=== PATIENT | male | born 1955 | race Caucasian/White ===

== ENCOUNTER 2021-01-24 09:25 | Inpatient (IN) | payer BC ==
--- NOTE | 2021-01-24 11:11 | RAD REPORT ---
EXAM DESCRIPTION: CTAbdomen Pelvis W Contrast - 01/24/2021 11:01 am CLINICAL HISTORY: Abdominal pain. ABD PAIN COMPARISON: No comparisons TECHNIQUE: Biphasic CT imaging of the abdomen and pelvis was performed with 100 ml non-ionic IV cont rast. All CT scans are performed using dose optimization technique as appropriate and may include automated exposure control or mA/KV adjustment according to patient size. FINDINGS: The lung bases are clear.Mitral annuloplasty. The liver, spleen, pancreas, adrenal glands and kidneys are within normal limits. No bowel obstruction, free air, free fluid or abscess. Periappendiceal inflammatory changes with mac endiceal dilatation. An appendicolith is present. There is some thinning of the wall of the appendix without evidence of a gross perforation. No abscess. No evidence of significant lymphadenopathy. Sma ll fat containing inguinal hernias. No suspicious bony findings. IMPRESSION: Acute appendicitis without definite evidence of perforation. No abscess. The wall of the appendix is thin in parts and an impending perforation is difficult to exclude.
[2021-01-24 11:31] LABS: Basophils % 0.6 % (0-1.3); Hematocrit 42.1 % (39.6-49.0); Lymphocytes % 6.8 % (15.3-44.8); MPV 8.1 fL (7.6-11.3); RBC Red Blood Cell Count 4.76 M/uL (4.33-5.43)
--- NOTE | 2021-01-24 11:53 | EDPHYS ---
Physician Documentation [facility] Name: Wes Tran Jr Age: 65 yrs Sex: Male : 1955 Arrival Date: 01/24/2021 Time: 09:29 Bed 6 Private MD: ED Physician Musa Lincoln HPI: 01/24 11:39 This 65 yrs old Male presents to ER via Ambulatory with complaints of jr8 Abdominal Pain, Flank Pain. 11:39 The patient presents with abdominal pain right lower quadrant. Onset: The jr8 symptoms/episode began/occurred acutely, this morning. The symptoms do not radiate. Associated signs and symptoms: none. The symptoms are described as stabbing. Modifying factors: The symptoms are alleviated by nothing, the symptoms are aggravated by nothing. Severity of pain: At its worst the pain was moderate in the emergency department the pain is unchanged. The patient has not experienced similar symptoms in the past. The patient has not recently seen a physician. Historical: - Allergies: 10:03 No Known Allergies; tw2 - Home Meds: 10:03 metoprolol tartrate 25 mg Oral tab 1 tab 2 times per day [Active]; losartan 25 mg oral tw2 tab 1 tab once daily [Active]; ezetimibe 10 mg oral tab 1 tab once daily [Active]; aspirin 325 mg Oral tab 1 tab once daily [Active]; Fish Oil 300 mg oral cap [Active]; Multiple Vitamins oral tab [Active]; - PMHx: 10:03 Hypertensive disorder; high cholesterol; tw2 - PSHx: 10:03 mitral valve prolapse, 2012; angioplasty, mitral valve, 2012; tw2 - Immunization history:: Client reports having NOT received the Covid vaccine. Last tetanus immunization: up to date. - Social history:: Smoking status: Patient/guardian denies using tobacco, the patient reports quitting approximately 40 years ago. ROS: 11:39 Eyes: Negative for injury, pain, redness, and discharge, ENT: Negative for injury, jr8 pain, and discharge, Neck: Negative for injury, pain, and swelling, Cardiovascular: Negative for chest pain, palpitations, and edema, Respiratory: Negative for shortness of breath, cough, wheezing, and pleuritic chest pain, Back: Negative for injury and pain, MS/Extremity: Negative for injury and deformity, Skin: Negative for injury, rash, and discoloration, Neuro: Negative for headache, weakness, numbness, tingling, and seizure. 11:39 Abdomen/GI: Positive for abdominal pain, Negative for nausea, vomiting, and diarrhea, abdominal cramps, abdominal distension. Exam: 11:39 Constitutional: This is a well developed, well nourished patient who is awake, alert, jr8 and in no acute distress. Cardiovascular: Regular rate and rhythm with a normal S1 and S2. No gallops, murmurs, or rubs. Normal PMI, no JVD. No pulse deficits. Respiratory: Lungs have equal breath sounds bilaterally, clear to auscultation and percussion. No rales, rhonchi or wheezes noted. No increased work of breathing, no retractions or nasal flaring. Back: No spinal tenderness. No costovertebral tenderness. Full range of motion. Skin: Warm, dry with normal turgor. Normal color with no rashes, no lesions, and no evidence of cellulitis. MS/ Extremity: Pulses equal, no cyanosis. Neurovascular intact. Full, normal range of motion. Neuro: Awake and alert, GCS 15, oriented to person, place, time, and situation. Cranial nerves II-XII grossly intact. Motor strength 5/5 in all extremities. Sensory grossly intact. 11:39 Abdomen/GI: Inspection: obese Bowel sounds: active, all quadrants, Palpation: soft, in all quadrants, moderate abdominal tenderness, in the right lower quadrant, mass, is not appreciated, rebound tenderness, is not appreciated, voluntary guarding, is not appreciated, involuntary guarding, is not appreciated, no appreciated organomegaly, Indicators: McBurney's point is tender, Lyn's sign is negative, Rovsing's sign is negative, Liver: tenderness, is not appreciated. Vital Signs: 10:00 BP 114 / 70; Pulse 70; Resp 17; Temp 99.2(O); Pulse Ox 97% on R/A; Pain 8/10; tw2 10:36 BP 116 / 80; Pulse 67; Resp 17; Pulse Ox 99% on R/A; tw2 11:39 BP 117 / 101; Pulse 74; Resp 17; Pulse Ox 100% on R/A; tw2 MDM: 09:45 Patient medically screened. [facility] 11:49 Data reviewed: vital signs, nurses notes, lab test result(s), radiologic studies, CT jr8 scan. Data interpreted: Pulse oximetry: on room air is 100 %. Interpretation: normal. Counseling: I had a detailed discussion with the patient and/or guardian regarding: the historical points, exam findings, and any diagnostic results supporting the discharge/admit diagnosis, lab results, radiology results, the need for further work-up and treatment in the hospital. ED course: Dr. Oseguera notified and will take patient to surgery. Clarifying with Cardiology whether or not patient needs extended Abx due to previous Mitral valve angioplasty. 01/24 10:19 Order name: Basic Metabolic Panel [facility] 01/24 10:19 Order name: CBC with Diff; Complete Time: 11:40 [facility] 01/24 10:19 Order name: Hepatic Function [facility] 01/24 10:19 Order name: Lipase [facility] 01/24 10:20 Order name: CT Abd/Pelvis - IV Contrast Only; Complete Time: 11:26 [facility] 01/24 10:19 Order name: IV Saline Lock; Complete Time: 10:49 [facility] 01/24 10:19 Order name: Labs collected and sent; Complete Time: 10:49 [facility] 01/24 11:08 Order name: Labs - recollect needed; Complete Time: 11:39 em1 Administered Medications: No medications were administered Disposition: 13:11 Co-signature as Attending Physician, Musa Lincoln MD I agree with the assessment and kdr plan of care. Disposition Summary: 01/24/21 11:52 Hospitalization Ordered Hospitalization Status: Observation [facility] Provider: Talib White [facility] Condition: Stable [facility] Problem: new [facility] Symptoms: are unchanged [facility] Bed/Room Type: Standard [facility] Room Assignment: [facility] Diagnosis - Acute appendicitis with localized peritonitis [facility] Discharge Instructions: - Discharge Summary Sheet ss Forms: - SBAR form ss - Medication Reconciliation Form [facility] Signatures: Dispatcher [employer] EDMusa Vail MD MD kdr Martinez, Eric em1 Blade Sampson PA PA 8 Ana Marinelli RN RN tw2
--- NOTE | 2021-01-24 11:53 | ER ---
Nurse's Notes [facility] Name: Wes Tran Jr Age: 65 yrs Sex: Male : 1955 Arrival Date: 01/24/2021 Time: 09:29 Bed 6 Private MD: Diagnosis: Acute appendicitis with localized peritonitis Presentation: 01/24 10:00 Chief complaint: Patient states: i was woke up out of my sleep around 0130 with tw2 abdominal pain in the RIGHT lower side, no NVD, no blood in urine. Coronavirus screen: At this time, the client does not indicate any symptoms associated with coronavirus-19. Ebola Screen: Patient denies travel to an Ebola-affected area in the 21 days before illness onset. Initial Sepsis Screen: Does the patient meet any 2 criteria? No. Patient's initial sepsis screen is negative. Does the patient have a suspected source of infection? No. Patient's initial sepsis screen is negative. Risk Assessment: Do you want to hurt yourself or someone else? Patient reports no desire to harm self or others. Onset of symptoms was January 24, 2021. 10:00 Method Of Arrival: Ambulatory tw2 10:00 Acuity: MAI 3 tw2 Triage Assessment: 10:03 General: Appears in no apparent distress. well groomed, Behavior is calm, cooperative, tw2 appropriate for age. Pain: Complains of pain in right lower quadrant. EENT: No signs and/or symptoms were reported regarding the EENT system. Neuro: Level of Consciousness is awake, alert, obeys commands, Oriented to person, place, time, situation. Cardiovascular: Patient's skin is warm and dry. Respiratory: Airway is patent Respiratory effort is even, unlabored, Respiratory pattern is regular, symmetrical. GI: Abdomen is round non-distended, Reports Patient currently denies diarrhea, nausea, vomiting. : No signs and/or symptoms were reported regarding the genitourinary system. Derm: No signs and/or symptoms reported regarding the dermatologic system. Musculoskeletal: Range of motion: intact in all extremities. Historical: - Allergies: 10:03 No Known Allergies; tw2 - Home Meds: 10:03 metoprolol tartrate 25 mg Oral tab 1 tab 2 times per day [Active]; losartan 25 mg oral tw2 tab 1 tab once daily [Active]; ezetimibe 10 mg oral tab 1 tab once daily [Active]; aspirin 325 mg Oral tab 1 tab once daily [Active]; Fish Oil 300 mg oral cap [Active]; Multiple Vitamins oral tab [Active]; - PMHx: 10:03 Hypertensive disorder; high cholesterol; tw2 - PSHx: 10:03 mitral valve prolapse, 2012; angioplasty, mitral valve, 2012; tw2 - Immunization history:: Client reports having NOT received the Covid vaccine. Last tetanus immunization: up to date. - Social history:: Smoking status: Patient/guardian denies using tobacco, the patient reports quitting approximately 40 years ago. Screenin:09 Abuse screen: Denies threats or abuse. Nutritional screening: No deficits noted. tw2 Tuberculosis screening: No symptoms or risk factors identified. Fall Risk None identified. Assessment: 10:06 GI: Bowel sounds present X 4 quads. Abdomen is tender to palpation X 4 quads. tw2 10:17 Reassessment: see triage assessment. tw2 10:36 Reassessment: Patient appears in no apparent distress at this time. No changes from tw2 previously documented assessment. Patient and/or family updated on plan of care and expected duration. Pain level reassessed. Patient is alert, oriented x 3, equal unlabored respirations, skin warm/dry/pink. 11:36 Reassessment: Patient appears in no apparent distress at this time. No changes from tw2 previously documented assessment. Patient and/or family updated on plan of care and expected duration. Pain level reassessed. Patient is alert, oriented x 3, equal unlabored respirations, skin warm/dry/pink. 12:08 Reassessment: Patient appears in no apparent distress at this time. No changes from tw2 previously documented assessment. Patient and/or family updated on plan of care and expected duration. Pain level reassessed. Patient is alert, oriented x 3, equal unlabored respirations, skin warm/dry/pink. Vital Signs: 10:00 BP 114 / 70; Pulse 70; Resp 17; Temp 99.2(O); Pulse Ox 97% on R/A; Pain 8/10; tw2 10:36 BP 116 / 80; Pulse 67; Resp 17; Pulse Ox 99% on R/A; tw2 11:39 BP 117 / 101; Pulse 74; Resp 17; Pulse Ox 100% on R/A; tw2 ED Course: 09:29 Patient arrived in ED. bp1 09:43 Ana Marinelli, RN is Primary Nurse. tw2 09:45 Blade Sampson PA is PHCP. jr8 09:45 Musa Lincoln MD is Attending Physician. jr8 09:45 Bed in low position. Call light in reach. Pulse ox on. NIBP on. tw2 10:03 Triage completed. tw2 10:09 Arm band placed on. tw2 10:49 Inserted saline lock: 20 gauge in left antecubital area, using aseptic technique. tw2 11:01 CT Abd/Pelvis - IV Contrast Only In Process Unspecified. EDMS 11:52 Talib White MD is Hospitalizing Provider. jr8 12:07 No provider procedures requiring assistance completed. Patient admitted, IV remains in tw2 place. Administered Medications: No medications were administered Outcome: 11:52 Decision to Hospitalize by Provider. jr8 12:07 Admitted to OR accompanied by nurse, via wheelchair, with chart, Report called to tw2 KAEL Baca 12:07 Condition: stable 12:07 Instructed on the need for admit. 12:08 Patient left the ED. tw2 Signatures: Dispatcher [employer] EDMS Blade Sampson PA PA jr8 Ana Marinelli RN RN tw2 Sophia Castillo bp1
[2021-01-24] MEDS ORDERED: PIPER/TAZO/NS 3.375gm 3.375 GM/100 ML BAG IV ONE (12:00)
[2021-01-24] MEDS ORDERED: Ringers Lactate 1,000 ML IV ONE (12:36)
[2021-01-24] MEDS ORDERED: FENTANYL CITR 100 MCG/2 ML ONE (13:24)
[2021-01-24] MEDS ORDERED: MIDAZOLAM HCL 2 MG/2 ML INJ ONE (13:24)
[2021-01-24] MEDS ORDERED: dexAMETHasone 10 MG/ML VIAL ONE (13:24)
[2021-01-24] MEDS ORDERED: propofoL 200 MG/20 ML VIAL IV ONE (13:24)
[2021-01-24] MEDS ORDERED: ROCURONIUM 50 MG/5 ML VIAL IV ONE (13:24)
[2021-01-24] MEDS ORDERED: KETOROLAC 30 MG/ML INJ ONE (13:24)
[2021-01-24] MEDS ORDERED: LIDOCAINE 2% MPF 5 ML VIAL ONE (13:24)
[2021-01-24] MEDS ORDERED: ONDANSETRON 4 MG/2 ML VIAL ONE (13:24)
--- NOTE | 2021-01-24 13:33 | PREOPCON ---
Date of Consultation: 01/24/2021 Reason: Abdominal pain. History Of Present Illness: The patient is a 65-year-old gentleman, comes in with approximately 12-h our history of acute onset of right lower quadrant abdominal pain. Denies any nausea, vomiting, diar reza, constipation, blood in his stool. No dysuria or hematuria. No sore throat, runny nose, cough, headaches, or dizziness. No fever or chills. No chest pain. Mild anorexia. Review of Systems: Otherwise unremarkable. Past Medical History: Significant for hypertension and mitral valve prolapse. Past Surgical History: Mitral valve prolapse procedure as well as AFib procedure done sounds by desc ription via VATS. Allergies: NO ALLERGIES. Social History: He does not smoke. Drinks occasionally. Family History: Significant for ALS in the father, colon cancer in 1 of the brothers, otherwise nonc ontributory. Physical Examination: Vitals signs: Stable. He is currently afebrile. He is awake, alert, and oriented x3. Head and neck: Cranial nerves 2 through 12 are grossly within normal limits. Neck: No neck masses. No JVD. Throat clear. Neck is supple. Chest: Clear. Heart: S1, S2. Abdomen: Soft, nondistended. Positive bowel sounds. Positive Rovsing sign. Positive right lower q uadrant tenderness with rebound. No rigidity or guarding. Extremities: Adequately perfused. Nontender. Neuro: Nonfocal. CT scan of the abdomen and pelvis reviewed with the radiologist, consistent with acute appendicitis. Although the appendix is thin walled, there was no evidence of perforation or abscess at this time. Laboratory Data: Shows a white count of 14.2 with a left shift. Chemistry pending right now. Assessment: A 65-year-old gentleman with acute appendicitis. Plan: Admit; n.p.o.; IV fluid; IV antibiotic; to the OR for lap appy, possible open. The patient un derstands the risks, benefits, and alternatives and agrees to procedure. Please note, the patient wa s advised for a colonoscopy in 4 to 6 weeks after the surgery as he has as family history of colon cancer. /MODL Voice ID: [id number] Report ID: [id number]
[2021-01-24] MEDS ORDERED: ONDANSETRON 4 MG/2 ML VIAL IV PRN (14:02)
[2021-01-24] MEDS ORDERED: ACETAMINOPHEN 500 MG TAB PO PRN (14:02)
[2021-01-24] MEDS: NA CHLORIDE 0.9% 1,000 ML IV SCH ×2 (14:02→17:35)
--- NOTE | 2021-01-24 14:04 | P.OP ---
Regulatory Affairs Strategy Specialist: Margie GRESHAM Preoperative diagnosis: Acute Appendicitis Postoperative diagnosis: same Primary procedure: Lap Appy Anesthesia: General Estimated blood loss: min Specimen: Appy Findings: as above Complications: None Transferred to: Recovery Room Condition: Good
[2021-01-24] MEDS ORDERED: GLYCOPYRROLATE 0.2 MG/ML SYR ONE (14:16)
[2021-01-24] MEDS ORDERED: NEOSTIGMINE 1 MG/ML -5 ML ONE (14:18)
--- NOTE | 2021-01-24 14:18 | P.HP ---
Certification for Inpatient Patient admitted to: Observation With expected LOS: <2 Midnights Patient will require the following post-hospital care: None Practitioner: I am a practitioner with admitting privileges, knowledge of patient current condition, hospital course, and medical plan of care. Services: Services provided to patient in accordance with Admission requirements found in Title 42 Section 412.3 of the Code of Federal Regulations Patient History Date of Service: 01/24/21 Primary Care Provider: Dr. Matias Heredia (recently , has not found new PCP) Reason for admission: acute appendicitis History of Present Illness: This is a 65 y/o M with HTN, HLD, MVP s/p angioplasty 2012 who presents today with RLQ pain. He reports the pain woke him up this morning from a deep sleep. Pain is constant and sharp with occasional burning sensations. States the RLQ pain radiates to the L side. Reports this pain has never happened before. Denies any nausea, vomiting, fevers, chills. Pt was seen at bedside s/p appendectomy. Pt appears comfortable and states he is feeling much better than when he came into ER. WC 14.2 CT abd: Acute appendicitis without definite evidence of perforation. No abscess. The wall of the appendix is thin in parts and an impending perforation is difficult to exclude. Allergies No Known Allergies Allergy (Unverified 01/24/21 11:55) - Past Medical/Surgical History Diabetic: No -: HTN -: HLD -: botulism -: mitral valve prolapse s/p angioplasty - Family History Father -: Other (see notes) ( from [facility]) Mother -: Cancer (lymphoma) Brother -: Cancer (colon) - Social History Smoking Status: Former smoker Alcohol use: Yes CD- Drugs: No Caffeine use: Yes Physical Examination - Vital Signs Temperature: 99.2 F Blood Pressure: 117/101 Pulse: 74 Respirations: 17 - Physical Exam General: Alert, In no apparent distress, Oriented x3, Cooperative HEENT: Normocephalic, Mucous membr. moist/pink, EOMI Neck: Supple Respiratory: Clear to auscultation bilaterally, Normal air movement Cardiovascular: No edema, Regular rate/rhythm, Normal S1 S2 Capillary refill: <2 Seconds Gastrointestinal: Normal bowel sounds, Soft and benign, Non-distended, No tenderness, No guarding Musculoskeletal: No swelling, No erythema, No tenderness Integumentary: No rashes, No breakdown Neurological: Normal speech, Normal tone, Normal affect - Studies Laboratory Data (last 24 hrs) 01/24/21 11:16: WBC 14.20 H, Hgb 14.1, Hct 42.1, Plt Count 230 Assessment and Plan - Plan impression: acute appendicitis with leukocytosis h/o MVP s/p angioplasty HTN HLD plan: acute appendicitis with leukocytosis: imaging consistent w/ appendicitis. laparoscopic appendectomy performed with Dr. Oseguera. await surgery recommendations. pt appears to be doing well s/p appy. continue zosyn q8h. IVF. clear liquid diet, advance as tolerated. h/o MVP s/p angioplasty: patient may need extended antibiotics due to cardiac history. consult cardiology and await recommendations. HTN, HLD: confirm and restart home meds as appropriate VTE: lovenox Code: full Dispo: anticipate d/c in 24h Discharge Plan: Home Plan to discharge in: 24 Hours - Advance Directives Does patient have a Living Will: No Does patient have a Durable POA for Healthcare: No - Code Status/Comfort Care Code Status Assessed: Yes Code Status: Full Code Time Spent Managing Pts Care (In Minutes): 55
--- NOTE | 2021-01-24 14:39 | OP ---
Date of Procedure: 01/24/2021 Surgeon: Caleb Oseguera MD Email Administrator: MARGA Phillips. Preoperative Diagnosis: Acute appendicitis. Postoperative Diagnoses: Acute appendicitis. Procedure: Laparoscopic appendectomy. Estimated Blood Loss: Minimal. Specimen: Appendix. Finding: As above. Anesthesia: General. Complications: None. Disposition: The patient tolerated procedure in stable condition, taken to recovery in good general condition. Operative Note: The patient was brought to the OR and placed in supine position. General anesthesia was begun. The patient was prepped and draped in usual sterile fashion. Marcaine 0.5% was infiltra nataliya locally. A 15-blade was used to make a 1 cm supraumbilical midline incision. Subcutaneous tissu e was divided. Fascia was identified and divided. #1 Vicryl stay suture was placed. Peritoneal cav ity was entered with sharp and blunt dissection. A 12 mm trocar was placed into the peritoneal cavit y under direct vision. Pneumoperitoneum was established. Then, two 5 trocars were placed, 1 in the suprapubic region, 1 in the left lower quadrant under direct vision. Laparoscopy revealed acute supp urative appendicitis in the right lower quadrant. Base of the appendix and mesoappendix were clearly identified. Endo-JULIANO stapling device was used to divide both structures and then the appendix was r etrieved through the umbilicus via an EndoCatch bag. The right lower quadrant was irrigated. Efflue nt was clear. No evidence of bleeding or bowel injury was appreciated. Subsequently, all trocars we re removed under direct vision. Stay sutures were tied to each other to approximate the fascial defe ct. Subcutaneous wounds were irrigated. Bleeding was controlled with cautery. A 3-0 chromic was use d to approximate the subcutaneous tissue and close the skin. Sterile dressing was applied. The adela ent was awakened and taken to recovery in good general condition. /MODL Voice ID: [id number] Report ID: [id number]
[2021-01-24] MEDS ORDERED: HYDROCODONE/APAP 7.5/325 MG TAB PO PRN (14:43)
[2021-01-24] MEDS ORDERED: HYDROMORPHONE HCL 1 MG/ML INJ IV PRN (14:43)
[2021-01-24 16:33] LABS: Albumin 3.7 g/dL (3.4-5.0); Bilirubin Direct 0.2 mg/dL (0-0.2); Bilirubin Total 0.6 mg/dL (0.2-1.0); Potassium 4.2 mmol/L (3.5-5.1); Protein, Total 7.1 g/dL (6.4-8.2)
[2021-01-24 18:07] VITALS: BMI 35.9
[2021-01-24 18:33] LABS: Urine Appearance CLEAR (Clear); Urine Bilirubin NEGATIVE (Negative); Urine Blood 2+ (Negative); Urine Color YELLOW (Yellow); Urine Glucose 1+ (Negative); Urine Protein TRACE (Negative); Urine Specific Gravity >=1.030 (1.005-1.030); Urine Urobilinogen 0.2 mg/dL (0.2-1.0); Urine pH 5.5 (5.0-7.0)
[2021-01-24] MEDS: PIPER/TAZO/NS 3.375gm 3.375 GM/100 ML BAG IVPB SCH (18:39)
[2021-01-24] MEDS ORDERED: PNEUMOCOCCAL VACCINE 0.5 ML IMVAC ONE (19:00)
[2021-01-24 19:12] LABS: Urine Microscopic Reflex ORDER UMIC
[2021-01-24 19:16] LABS: Urine Bacteria <20 /HPF (NONE SEEN)
[2021-01-25] MEDS: NA CHLORIDE 0.9% 1,000 ML IV SCH ×3 (00:02→10:02)
[2021-01-25] MEDS: PIPER/TAZO/NS 3.375gm 3.375 GM/100 ML BAG IVPB SCH ×3 (01:21→17:20)
[2021-01-25 06:11] LABS: Absolute Lymphocytes (CBC) 0.9 K/uL (0.7-4.9); Basophils % 0.1 % (0-1.3); Lymphocytes % 6.4 % (15.3-44.8); MPV 8.2 fL (7.6-11.3); RBC Red Blood Cell Count 4.25 M/uL (4.33-5.43)
[2021-01-25 06:31] LABS: Magnesium 2.5 mg/dL (1.8-2.4); Phosphorus 3.8 mg/dL (2.5-4.9)
[2021-01-25 07:23] LABS: White Blood Cell Scan OK (OK)
[2021-01-25 07:24] LABS: Blood Morphology Comment NOT SEEN (NOT SEEN); Platelet Estimate ADEQ
[2021-01-25] MEDS ORDERED: METOPROLOL TAR 25 MG TAB PO SCH (09:00)
[2021-01-25] MEDS ORDERED: ENOXAPARIN 40 MG/0.4 ML SQ SCH (09:00)
--- NOTE | 2021-01-25 09:16 | PN ---
Date of Progress Note: 01/25/2021 Subjective: The patient is awake and alert. No pain. Tolerating diet, ambulating. Objective: Vital Signs: Stable, afebrile. Abdomen: Benign. Laboratory Data: White count is still elevated at 13.4 with a left shift. Assessment: Status post laparoscopic appendectomy in a patient with significant cardiac history rega rding mitral valve prolapse. Recommendations: We will keep the patient in the hospital for another day of IV antibiotics. Patien t will need to be discharged tomorrow on oral antibiotics, probably Augmentin for 10 days, and then t he patient can follow up with me in the office and we will need a colonoscopy in 4 to 6 weeks. Plan of care discussed in detail with the patient as well as Dr. White. MICHELLE/DANNA Voice ID: [id number] Report ID: [id number]
[2021-01-25] MEDS ORDERED: NA CHLORIDE 0.9% 1,000 ML IV SCH (11:34)
[2021-01-25] MEDS: METOPROLOL TAR 25 MG TAB PO SCH ×2 (12:04→20:23)
[2021-01-25] MEDS ORDERED: PNEUMOCOCCAL VACCINE 0.5 ML IMVAC ONE (13:00)
--- NOTE | 2021-01-25 13:12 | P.PN ---
Subjective Date of Service: 01/25/21 Primary Care Provider: Dr. Matias Heredia (recently , has not found new PCP) Chief Complaint: acute appendicitis Subjective: Improving (no pain meds required since surgery, ambulating in room, +voiding with slight burn after kamara removed, +flatus, no BM, +good appetite, no nausea/vomiting, tolerated CLD. hypotensive o/n, 90s/60s this morning. Patient took home aspirin, lisinopril, and metoprolol last night without telling anyone) Review of Systems 10-point ROS is otherwise unremarkable Physical Examination - Vital Signs Temperature: 98.4 F Blood Pressure: 126/57 Pulse: 68 Respirations: 18 Pulse Ox (%): 95 Assessment & Plan Physician Review Additional Text: Physical Exam Gen: NAD HEENT: normal conjunctiva, sclera anicteric CV: regular rate and rhythm, no edema Pulm: nonlabored on room air, clear bilaterally Abd: soft, mild TTP in RLQ, no rebound Neuro: normal affect, normal speech Problem List acute appendicitis with leukocytosis s/p lap appy 01/24 h/o MVP s/p angioplasty HTN HLD paroxysmal afib -s/p lap appy on 01/[address] Oseguera -doing well -hypotensive today, but patient took anti-hypertensives on his own -hold lisinopril -will recheck BP and restart metoprolol today if appropriate -on zosyn -will need 10 days augmentin on discharge -advance diet as tolerated VTE: lovenox Code: full Dispo: anticipate dc home tomorrow Time Spent Managing Pts Care (In Minutes): 45
[2021-01-26] MEDS: PIPER/TAZO/NS 3.375gm 3.375 GM/100 ML BAG IVPB SCH ×2 (00:31→08:00)
[2021-01-26 00:42] VITALS: O2SAT 95
[2021-01-26 06:26] LABS: Absolute Lymphocytes (CBC) 1.5 K/uL (0.7-4.9); Basophils % 0.5 % (0-1.3); Hematocrit 37.7 % (39.6-49.0); Lymphocytes % 16.6 % (15.3-44.8); RBC Red Blood Cell Count 4.16 M/uL (4.33-5.43)
[2021-01-26 06:35] LABS: Magnesium 2.3 mg/dL (1.8-2.4); Potassium 4.4 mmol/L (3.5-5.1)
--- NOTE | 2021-01-26 07:32 | PN ---
Date of Progress Note: 01/26/2021 Subjective: The patient is awake and alert. No complaint. Objective: Vital Signs: Stable, afebrile. Abdomen: Benign. Laboratory Data: White count is 9.5, left shift, has improved markedly. Assessment: Status post laparoscopic appendectomy. Plan: Patient is cleared from surgery standpoint for discharge. Antibiotic prescription given. Dis charge instructions given. The patient to followup with me later in the week. /MODL Voice ID: [id number] Report ID: [id number]
[2021-01-26] MEDS: METOPROLOL TAR 25 MG TAB PO SCH (08:01)
[2021-01-26 08:09] VITALS: BP 110/64; TEMP 97.6
--- NOTE | 2021-01-26 13:38 | CON ---
Date of Consultation: 01/25/2021 Reason For Consultation: Cardiac clearance for appendectomy and my opinion regarding antibiotic use postoperatively. History Of Present Illness: Mr. Tran is a 65-year-old, he has had a history of mitral valve annulo plasty years ago. He has a history of hypertension, dyslipidemia, came in with acute appendicitis. I cleared him over the phone, per Dr. Oseguera he has to do surgery and the surgery went very well. Thomase rnight the patient has done well. He has no arrhythmia, no cardiac complaint. He does take aspirin, Zetia, losartan, and metoprolol at home. He sees Dr. Oleary, I believe, as an outpatient. I am co mfortable with him going home whenever it is okay with Dr. sOeguera and Dr. White. I suggest that he ge ts p.o. antibiotics for about 10 days postoperatively because of the risk of endocarditis with mitral valve surgery. CLARE/DANNA Voice ID: [id number] Report ID: [id number]
--- NOTE | 2021-01-26 14:17 | P.DS ---
Admission Date: 01/24/21 Discharge Date: 01/26/21 Primary Care Provider: Dr. Matias Heredia (recently , has not found new PCP) Disposition: ROUTINE DISCHARGE Discharge Condition: GOOD Reason for Admission: acute appendicitis Consultations: General Surgery - Dr. Oseguera Procedures: CT Abd/pelvis (01/24): The lung bases are clear. Mitral annuloplasty. The liver, spleen, pancreas, adrenal glands and kidneys are within normal limits. No bowel obstruction, free air, free fluid or abscess. Periappendiceal inflammatory changes with appendiceal dilatation. An appendicolith is present. There is some thinning of the wall of the appendix without evidence of a gross perforation. No abscess. No evidence of significant lymphadenopathy. Small fat containing inguinal hernias. No suspicious bony findings. IMPRESSION: Acute appendicitis without definite evidence of perforation. No abscess. The wall of the appendix is thin in parts and an impending perforation is difficult to exclude. Laparoscopic appendectomy (01/24) by Dr. Oseguera Problem List acute appendicitis s/p lap appy (01/24) h/o MVP s/p angioplasty HTN HLD paroxysmal afib Brief History of Present Illness: 65 y/o M with HTN, HLD, MVP s/p angioplasty 2013 who presente with RLQ pain that woke him from his sleep. Workup in ED consistent with acute appendicitis. Hospital Course: Patient was taken immediately to the OR and underwent laparoscopic appendectomy. Postoperative course was uncomplicated. He was empirically treated with IV Zosyn. Given his cardiac history, is recommended to be discharged with 10 days of Augmentin. On day of discharge, patient was tolerating diet without nausea/vomiting, requiring minimal pain medication, ambulating well. He is to follow up with general surgery later this week. He was noted to have low-normal blood pressure, average: 105/70, advised to hold off on his losartan for the next few days and restart as his blood pressure gets higher. Vital Signs/Physical Exam: Temp Pulse Resp BP Pulse Ox 97.6 F 71 17 110/64 96 01/26/21 08:00 01/26/21 08:00 01/26/21 08:00 01/26/21 08:00 01/26/21 08:00 General: Alert, In no apparent distress, Oriented x3 HEENT: Sclerae nonicteric Respiratory: Clear to auscultation bilaterally, Normal air movement Cardiovascular: No edema, Regular rate/rhythm Gastrointestinal: Soft and benign, Non-distended, Tenderness (mild at incision sites) Musculoskeletal: No erythema, No tenderness Integumentary: No rashes, No tenderness/swelling Neurological: Normal speech, Normal strength at 5/5 x4 extr, Normal affect Laboratory Data at Discharge: WBC 9.30 K/uL (4.3-10.9) D 01/26/21 06:12 Hgb 12.3 g/dL (13.6-17.9) L 01/26/21 06:12 Hct 37.7 % (39.6-49.0) L 01/26/21 06:12 Plt Count 210 K/uL (152-406) 01/26/21 06:12 Sodium 144 mmol/L (136-145) 01/26/21 06:12 Potassium 4.4 mmol/L (3.5-5.1) 01/26/21 06:12 BUN 16 mg/dL (7-18) 01/26/21 06:12 Creatinine 0.90 mg/dL (0.55-1.3) 01/26/21 06:12 Glucose 114 mg/dL (74-106) H 01/26/21 06:12 Phosphorus 3.8 mg/dL (2.5-4.9) 01/25/21 05:40 Magnesium 2.3 mg/dL (1.8-2.4) 01/26/21 06:12 Total Bilirubin 0.6 mg/dL (0.2-1.0) 01/24/21 16:09 AST 11 U/L (15-37) L 01/24/21 16:09 ALT 27 U/L (12-78) 01/24/21 16:09 Alkaline Phosphatase 72 U/L (45-117) 01/24/21 16:09 Lipase 66 U/L (73-393) L 01/24/21 16:09 Home Medications: Aspirin Tab [Guerline Aspirin*] 325 mg PO DAILY 01/24/21 Ezetimibe 10 mg PO DAILY 01/24/21 Losartan Potassium 50 mg PO DAILY 01/24/21 Metoprolol Tartrate 25 mg PO BID 01/24/21 Amox/Clavulanate [Augmentin 875-125 Tab] 1 each PO BID #20 tab 01/26/21 Codeine/APAP [Tylenol W/Codeine #3 tab] 1 tab PO Q4HP PRN #40 tab 01/26/21 New Medications: Codeine/APAP [Tylenol W/Codeine #3 tab] 1 tab PO Q4HP PRN #40 tab PRN Reason: Pain Amox/Clavulanate [Augmentin 875-125 Tab] 1 each PO BID #20 tab Physician Discharge Instructions: Remove outer dressing and shower Keep steri strips on at all times Diet: AHA Activity: No lifting more than 10 lbs Followup: Caleb Oseguera MD [ACTIVE - CAN ADMIT] - 01/30/21 (call to verify time of appointment) Unknown,U [Primary Care Provider] - Time spent managing pt's care (in minutes): 35
--- NOTE | 2021-01-27 16:11 | EKG ---
Test Date: 2021-01-25 Test Time: 11:42:33 Structural Test Engineer: MACK MEASUREMENT RESULTS: Intervals: Rate: 71 PA: 170 QRSD: 88 QT: 410 QTc: 445 Farrell: P: 96 PA: 170 QRS: 4 T: 49 INTERPRETIVE STATEMENTS: Sinus rhythm with premature atrial complexes Otherwise normal ECG Compared to ECG 02/07/2007 15:55:54 Atrial premature complex(es) now present Electronically Signed On 01-27-21 16:05:18 CDT by Romain Merino
== END 2021-01-26 09:10 | disposition home or self-care (01) | DRG 343 ==
LOC: ER 09:25 → INTOOBSV 12:55 → ERHOLD 12:55 → OBSVTOIN 12:55 → 2ND 14:40 → OBSVTOIN 01-25 12:09
PROVIDERS: ADMIT Hospitalist; ATTEND Hospitalist
PROC: 0DTJ4ZZ Resection of Appendix, Percutaneous Endoscopic Approach (ICD-10-PCS; principal; 2021-01-24 12:00)
DX: K35.80 Unspecified acute appendicitis (principal); I10 Essential (primary) hypertension; E78.5 Hyperlipidemia, unspecified; I48.0 Paroxysmal atrial fibrillation; E66.9 Obesity, unspecified; Z68.35 Body mass index [BMI] 35.0-35.9, adult; Z86.79 Personal history of other diseases of the circulatory system; Z95.4 Presence of other heart-valve replacement; Z23 Encounter for immunization
CPT/HCPCS: 36415; 74177; 80048; 80076; 81003; 81015; 82565; 83690; 83735; 84100; 85025; 87086; 87088; 88304; 90471; 90732; 93005; 94010; 99285; G0378; J1100; J2250; J2405; J2543; J2704; J2710; J3010; J7030; J7120; Q9967

== ENCOUNTER 2021-04-15 06:25 | Day surgery (SDC) | payer BC ==
--- NOTE | 2021-04-11 09:12 | RAD REPORT ---
EXAM DESCRIPTION: Lauro Betancourt And Lisa (2 Views)04/11/2021 9:05 am CLINICAL HISTORY: Preop COMPARISON: None FINDINGS: The lungs appear clear of acute infiltrate. The heart is normal size. Postsurgical change s involve the chest IMPRESSION: No acute abnormalities displayed
[2021-04-11 09:44] LABS: Potassium 4.8 mmol/L (3.5-5.1)
[2021-04-11 09:54] LABS: Absolute Lymphocytes (CBC) 1.6 K/uL (0.7-4.9); Basophils % 0.6 % (0-1.3); Hematocrit 44.7 % (39.6-49.0); Lymphocytes % 26.1 % (15.3-44.8); MPV 7.7 fL (7.6-11.3); RBC Red Blood Cell Count 5.02 M/uL (4.33-5.43)
[2021-04-15] MEDS ORDERED: Ringers Lactate 1,000 ML IV ONE (07:06)
[2021-04-15] MEDS ORDERED: propofoL 200 MG/20 ML VIAL IV ONE (07:53)
[2021-04-15] MEDS ORDERED: LIDOCAINE 1% MPF 5 ML VIAL ONE (07:53)
--- NOTE | 2021-04-15 08:01 | ENDO RPT ---
[address], [address] COLONOSCOPY PROCEDURE REPORT EXAM DATE: 04/15/2021 PATIENT NAME: Wes Tran MR #: [id number] BIRTHDATE: 1955 ATTENDING: Caleb Oseguera M.D. STATUS: outpatient PRESSURE TESTING TECHNICIAN: Vonda Boykin RN and Noemi Andrade RN INDICATIONS: The patient is a 65 yr old Male here for a colonoscopy due to colon cancer screening PROCEDURE PERFORMED: Colonoscopy MEDICATIONS: Per Anesthesia. ESTIMATED BLOOD LOSS: None CONSENT: The patient understands the risks and benefits of the procedure and understands that these risks include, but are not limited to: sedation, allergic reaction, infection, perforation and/or bleeding. Alternative means of evaluation and treatment include, among others: physical exam, x-rays, and/or surgical intervention. The patient elects to proceed with this endoscopic procedure. DESCRIPTION OF PROCEDURE: During intra-op preparation period all mechanical medical equipment was checked for proper function. Hand hygiene and appropriate measures for infection prevention was taken. Procedure, possible complications, alternatives including, but not limited to possibility of bleeding, perforation, tear, infection, sepsis, need for surgery, need for blood transfusion, were explained to the patient. After the risks, benefits and alternatives of the procedure were thoroughly explained, Informed consent was verified, confirmed and timeout was successfully executed by the treatment team. The patient was placed in the left lateral position. A digital rectal exam was performed and revealed an enlarged prostate. After appropriate level of anesthesia, the scope was passed. The [id number] ([id number]) endoscope was introduced through the anus and advanced to the cecum, which was identified by the ileocecal valve. The quality of the prep was good. The instrument was then slowly withdrawn as the colon was fully examined. Scope withdrawal time was 10 minutes. COLON FINDINGS: Moderate diverticulosis was noted in the sigmoid colon. Small internal hemorrhoids were found. Retroflexed views revealed no abnormalities. The scope was then completely withdrawn from the patient and the procedure terminated. ADVERSE EVENTS: There were no complications. IMPRESSIONS: 1. Moderate diverticulosis was noted in the sigmoid colon 2. Small internal hemorrhoids RECOMMENDATIONS: 1. fiber rich diet 2. follow-up: office 1 week(s) 3. increase dietary water 4. no seeds in diet RECALL: Return in 5 year(s) for Colonoscopy. Caleb Oseguera M.D. eSigned: Caleb Oseguera M.D. 04/15/2021 8:00 AM cc: Matias Heredia M.D. CPT CODES: ICD9 CODES: 600.0 Hypertrophy (benign) of prostate PATIENT NAME: Wes Tran MR#: [id number]
[2021-04-15 08:32] VITALS: O2SAT 98
[2021-04-15 08:33] VITALS: TEMP 97.9
[2021-04-15 08:35] VITALS: BP 117/75
== END 2021-04-15 08:33 | disposition home or self-care (01) ==
LOC: OR 06:25
PROVIDERS: ATTEND Surgery
PROC: 0DJD8ZZ Inspection of Lower Intestinal Tract, Via Natural or Artificial Opening Endoscopic (ICD-10-PCS; principal; 2021-04-15 07:30)
DX: Z12.11 Encounter for screening for malignant neoplasm of colon (principal); K57.30 Diverticulosis of large intestine without perforation or abscess without bleeding; K64.8 Other hemorrhoids; Z80.0 Family history of malignant neoplasm of digestive organs; I10 Essential (primary) hypertension; Z20.822 Contact with and (suspected) exposure to COVID-19
CPT/HCPCS: 85025; 80048; 36415; 71046; 45378; U0003; J2704; J7120